=== PATIENT | female | born 2000 | race Two or more races ===

== ENCOUNTER 2023-09-16 04:43 | Day surgery (SDC) | payer OTHER ==
[2023-09-09 09:16] VITALS: BMI 31.1
[2023-09-16 10:09] VITALS: BP 121/79; PULSE 61; RESP 20; TEMP 98.4
== END 2023-09-16 12:30 | disposition home or self-care (01) ==
LOC: JASU-SURG 04:43
PROVIDERS: ATTEND Urology
DX: Z53.8 Procedure and treatment not carried out for other reasons (principal)
CPT/HCPCS: 81025

== ENCOUNTER 2023-10-28 04:33 | Day surgery (SDC) | payer OTHER ==
[2023-10-28 14:01] VITALS: RESP 18; BMI 31.8
[2023-10-28] MEDS ORDERED: MIDAZOLAM HCL 2 MG/2 ML SINGLE DOSE VIAL ONE (18:18)
[2023-10-28 20:30] VITALS: TEMP 97.8
[2023-10-28 21:08] VITALS: BP 128/79; PULSE 72
== END 2023-10-28 21:20 | disposition home or self-care (01) ==
LOC: JASU-SURG 04:33
PROVIDERS: ATTEND Urology
PROC: 0TF3XZZ Fragmentation in Right Kidney Pelvis, External Approach (ICD-10-PCS; principal; 2023-10-28 16:00)
DX: N20.0 Calculus of kidney (principal)
CPT/HCPCS: 81025